=== PATIENT | female | born 1950 | race Caucasian/White ===

== ENCOUNTER → 2017-12-03 | Outpatient (CLI) | payer OTHER ==
[~2017-12-03] MED LIST: ALDACTONE25 MG PO; COZAAR 25 MG TA25 M1 PO; COZAAR 25 MG TA25 M2 PO; CYCLOBENZAPRINE5 MG PO; ELIQUIS5 MG PO; FLAGYL500 MG PO; HIGH CHOLESTEROL MED; KEFLEX500 MG PO; LANOXIN 0.120.125 M1 PO; PACERONE 200 M200 M1 PO; PRAVACHOL40 MG PO; PRILOSEC 20 MG20 MG PO; PROBIOTIC1 EAC1 PO; SIMVASTATIN40 MG PO; SOTALOL80 MG PO; SYMBICORT160 MCG/4. INH; SYNTHROID100 MCG PO; TRAMADOL 50 MG50 MG PO; TYLENOL325 MG PO; UNICOMPLEX M TA1 TA1 PO; VENTOLIN HFA 1818 GM INH; [UNRECOGNIZED DRUG - OTHER] PO
== END ==
LOC: RAD 11:01
DX: J45.909 Unspecified asthma, uncomplicated (principal); R07.9 Chest pain, unspecified

== ENCOUNTER → 2019-09-15 | Outpatient (CLI) | payer OTHER | LOC: SJCVC 13:03 | DX: I48.0 Paroxysmal atrial fibrillation (principal); E03.9 Hypothyroidism, unspecified; J45.909 Unspecified asthma, uncomplicated; E78.5 Hyperlipidemia, unspecified; Z79.899 Other long term (current) drug therapy ==

== ENCOUNTER → 2020-09-19 | Outpatient (CLI) | payer OTHER | LOC: SJCVC 15:36 | PROVIDERS: ATTEND Internal Medicine Cardiovascular Disease | DX: I48.0 Paroxysmal atrial fibrillation (principal); I48.3 Typical atrial flutter; I15.1 Hypertension secondary to other renal disorders; N28.89 Other specified disorders of kidney and ureter; G47.33 Obstructive sleep apnea (adult) (pediatric); E03.9 Hypothyroidism, unspecified; J45.909 Unspecified asthma, uncomplicated; E78.5 Hyperlipidemia, unspecified; Z82.49 Family history of ischemic heart disease and other diseases of the circulatory system; Z79.899 Other long term (current) drug therapy ==